=== PATIENT | male | born 1945 | race Caucasian/White ===

== ENCOUNTER 2018-01-16 10:37 | Day surgery (SDC) | payer OTHER ==
[2018-01-16] MEDS ORDERED: PROPOFOL 60 ML (13:08)
[2018-01-16] MEDS ORDERED: LIDOCAINE 2% (SDV) 5 ML INJ (13:08)
== END 2018-01-16 15:24 | disposition home or self-care (01) ==
LOC: GIL 10:37
DX: Z12.11 Encounter for screening for malignant neoplasm of colon (principal); K29.60 Other gastritis without bleeding; K57.90 Diverticulosis of intestine, part unspecified, without perforation or abscess without bleeding; K64.8 Other hemorrhoids; E11.9 Type 2 diabetes mellitus without complications; E78.5 Hyperlipidemia, unspecified; I10 Essential (primary) hypertension; E66.01 Morbid (severe) obesity due to excess calories; Z68.36 Body mass index [BMI] 36.0-36.9, adult
CPT/HCPCS: 43239; 82962; 88305; 88312